=== PATIENT | male | born 1975 | race Caucasian/White ===

== ENCOUNTER 2024-01-31 18:22 | Emergency (ER) | payer SELFPAY ==
[~2024-01-31] VITALS: Ht 172.7 cm; Wt 82.0 kg
[2024-01-31 18:28] VITALS: BP 134/84; PULSE 98; RESP 18; TEMP 98.2; O2SAT 100
[2024-01-31] MEDS: SODIUM CHLORIDE 0.9% 1,000 ML IV ONE (19:55)
[2024-01-31 20:00] LABS: BASOPHILS % 1.7 % (0.0-2.0); EOSINOPHILS % 0.9 % (0.0-5.0); HEMATOCRIT. 40.2 % (42.0-52.0); LYMPHOCYTES % 35.7 % (20.0-50.0); MEAN CORPUSCULAR HEMOGLOBIN 32.3 pg (28.0-32.0); MEAN CORPUSCULAR HGB CONC 34.8 g/dL (31.0-37.0); MEAN PLATELET VOLUME 8.1 fl (7.4-10.4); MONOCYTES % 4.6 % (2.0-8.0); NEUTROPHILS % 57.1 % (40.0-76.0); PLATELET 327 x1000/uL (130-400); RED BLOOD CELL COUNT 4.33 mill/uL (4.7-6.1); RED CELL DISTRIBUTION WIDTH 16.5 % (11.6-14.6); WHITE BLOOD COUNT 5.9 x1000/uL (4.5-11.0)
[2024-01-31 20:05] LABS: CHLORIDE 101 mEq/L (98-107); SODIUM 136 mEq/L (136-145)
[2024-01-31 20:06] LABS: CARBON DIOXIDE 25 mEq/L (21-32)
[2024-01-31 20:09] LABS: INR 0.9
[2024-01-31 20:11] LABS: CREATININE 0.8 mg/dL (0.6-1.3); GLUCOSE 94 mg/dL (70-105); UREA NITROGEN BLOOD 6 mg/dL (9-23)
[2024-01-31 20:13] LABS: ALANINE AMINOTRANSFERASE 131 IU/L (10-49); ALBUMIN 4.7 g/dL (3.2-4.8); ASPARTATE AMINOTRANSFERASE 142 IU/L (<34); BILIRUBIN TOTAL 0.5 mg/dL (0.1-1.0); PROTEIN TOTAL 7.8 g/dL (6.0-8.3)
[2024-01-31 20:21] LABS: ETHANOL BLOOD 338 mg/dL (<10)
[2024-01-31] MEDS ORDERED: AMOX1TAB16 MT (20:28)
[2024-01-31] MEDS ORDERED: NAPR-681 MT (20:28)
== END 2024-02-01 00:29 | disposition home or self-care (01) ==
LOC: ER 18:22
DX: G92.9 Unspecified toxic encephalopathy (principal); K08.89 Other specified disorders of teeth and supporting structures; F10.20 Alcohol dependence, uncomplicated; Y90.8 Blood alcohol level of 240 mg/100 ml or more
CPT/HCPCS: 80053; 80320; 85025; 85610; 36415; 96360; 99283; J7030; G0480